=== PATIENT | female | born 1970 | race Caucasian/White ===

== ENCOUNTER 2018-08-19 20:01 | Emergency (ER) | payer MEDICAID ==
[2018-08-19] MEDS ORDERED: KETOROLAC TROMETHAMINE INJ/PF 30 MG/1 ML SDV IV ONE (21:35)
--- NOTE | 2018-08-19 21:40 | ER Document Report ---
ED Medical Screen (RME) - General Chief Complaint: Fall Stated Complaint: FALL Time Seen by Provider: 08/19/18 21:35 Notes: 47-year-old female comes by EMS for chief complaint of fall with injury. She reports she had a mechanical fall in a restaurant parking lot just prior to arrival. She tripped, fell onto her right side causing injury to her right ankle, side of the knee, right rib area, right hand, right wrist, and right elbow with multiple abrasions. Her tetanus is reportedly up-to-date. She denies hitting her head, back pain, she denies alcohol, she is not on a blood thinner. TRAVEL OUTSIDE OF THE [place] IN LAST 30 DAYS: No Past Medical History - Social History Chew tobacco use (# tins/day): No Frequency of alcohol use: None Drug Abuse: None Renal/ Medical History: Denies: Hx Peritoneal Dialysis Physical Exam - Vital signs Vitals: Pulse Resp BP Pulse Ox 80 16 167/107 H 95 08/19/18 20:19 08/19/18 20:19 08/19/18 20:19 08/19/18 20:19 - HEENT Head: Normocephalic, Atraumatic - Respiratory Respiratory status: No respiratory distress. No: Labored, Tachypnea Chest status: Tender - Tender over the right lower ribs without bruising, deformity, ecchymosis. Breath sounds: Normal. No: Decreased air movement - Abdominal Inspection: Normal Tenderness: Nontender Course - Re-evaluation Re-evalutation: No sign of head injury or altered mental status. Patient requesting something nonsedating for pain, EMS gave her an IV, will provide with Toradol through the IV. I have greeted and performed a rapid initial assessment of this patient. A comprehensive ED assessment and evaluation of the patient, analysis of test results and completion of the medical decision making process will be conducted by additional ED providers. - Vital Signs Vital signs: Temp Pulse Resp BP Pulse Ox 80 16 167/107 H 95 08/19/18 20:19 08/19/18 20:19 08/19/18 20:19 08/19/18 20:19
--- NOTE | 2018-08-19 22:39 | RADIOLOGY REPORT (SQ) ---
PA CHEST 2 VIEWS OF RIGHT RIBS HISTORY: Rib pain. COMPARISON: None. FINDINGS/IMPRESSION: No displaced rib fractures are seen. The surrounding lungs are clear. No pneumothorax or pleural effusions are seen. IMPRESSION: No displaced right-sided rib fractures are seen. If there is high clinical concern or point tenderness, consider CT scan.
--- NOTE | 2018-08-19 22:42 | RADIOLOGY REPORT (SQ) ---
3 VIEWS OF RIGHT ELBOW, HAND, AND WRIST HISTORY: Trauma. COMPARISON: None. FINDINGS: No acute fracture is seen. The joint spaces are preserved. No elbow joint effusion is seen. The surrounding soft tissues are swollen. No radiopaque foreign body is identified. IMPRESSION: No acute fracture or malalignment.
--- NOTE | 2018-08-19 22:43 | RADIOLOGY REPORT (SQ) ---
4 VIEWS OF RIGHT KNEE 3 VIEWS OF RIGHT ANKLE HISTORY: Trauma. COMPARISON: None. FINDINGS: No acute fracture or dislocation is seen. No knee or ankle joint effusion. The surrounding soft tissues are swollen. No radiopaque foreign body is identified. IMPRESSION: No acute fracture or malalignment.
--- NOTE | 2018-08-20 02:42 | ER Document Report ---
ED General - General Chief Complaint: Fall Stated Complaint: FALL Time Seen by Provider: 08/19/18 21:35 Notes: Patient is a 47-year-old female without chronic medical problems, does not take any form of anticoagulation, presents after mechanical fall in a parking lot. Patient states that she tripped over a concrete barrier in the parking lot falling down onto her right hand, right upper extremity, twisting her right ankle and landing onto her right hip and right chest wall. Denies hitting her head or neck. Notes a throbbing, aching, constant, moderate to severe pain to all affected areas. Pain is worsened by movement to the affected areas. Nothing improves the pain. Denies history of similar injuries in the past. Has not seen her primary doctor regarding today's concerns. Reports tetanus is up-to-date. TRAVEL OUTSIDE OF THE [place] IN LAST 30 DAYS: No Past Medical History - General Information source: Patient - Social History Smoking Status: Never Smoker Chew tobacco use (# tins/day): No Frequency of alcohol use: None Drug Abuse: None Lives with: Family Family History: Reviewed & Not Pertinent Patient has suicidal ideation: No Patient has homicidal ideation: No Renal/ Medical History: Denies: Hx Peritoneal Dialysis Review of Systems - Review of Systems Notes: Constitutional: Negative for fever. Eyes: Negative for visual changes. ENT: Negative for facial injury Cardiovascular: Positive for chest injury. Respiratory: Negative for shortness of breath. Gastrointestinal: Negative for abdominal injury. Genitourinary: Negative for genital injury Musculoskeletal: Positive for right ankle, right hand, right elbow, right hip injury Skin: Positive for laceration/abrasions. Neurological: Negative for head injury. Physical Exam - Vital signs Vitals: Pulse Resp BP Pulse Ox 80 16 167/107 H 95 08/19/18 20:19 08/19/18 20:19 08/19/18 20:19 08/19/18 20:19 Interpretation: Hypertensive Notes: PHYSICAL EXAMINATION: GENERAL: Well-appearing, no acute distress. HEAD: Atraumatic, normocephalic. EYES: Pupils equal round and reactive to light, extraocular movements intact, sclera anicteric, conjunctiva are normal. ENT: nares patent, no oral pharyngeal trauma. No hemotympanum, no Goldman's sign, no raccoon eyes. NECK: No midline cervical spine tenderness. Patient able to move their head to 45 bilaterally without any discomfort. LUNGS: Breath sounds clear to auscultation bilaterally and equal. No wheezes rales or rhonchi. HEART: Regular rate and rhythm without murmurs. CHEST WALL: No ecchymosis over the chest wall. ABDOMEN: Soft, nontender, normoactive bowel sounds. No guarding, no rebound. No abdominal bruising EXTREMITIES: Normal range of motion in all joint spaces, no pitting or edema. No long bone deformities. BACK: No midline spinal tenderness, step-offs, or deformities. NEUROLOGICAL: Face symmetric. Tongue protrudes midline. Extraocular motions in tact. Pupils are 2 mm and equally reactive. Normal speech, normal gait. 5 out of 5 strength in both the distal and proximal upper and lower extremities bilaterally. Sensation is grossly intact throughout. Finger to nose testing normal. Pronator drift normal. PSYCH: Normal mood, normal affect. SKIN: Warm, Dry, normal turgor, scattered abrasions of the right upper extremity and right hand. Trace ecchymosis over the right hip. Course - Re-evaluation Re-evalutation: 08/20/18 02:42 Patient presents after mechanical fall landing onto the right side of her body. X-rays were done of all affected areas of pain including her right ankle, side of the knee, right rib area, right hand, right wrist, and right elbow with multiple abrasions. Patient did not hit her head or neck. She has full range of motion in all affected joint spaces. Ambulatory without difficulty. Multiple scattered abrasions although her tetanus is up-to-date. At this time will discharge with return precautions and follow-up recommendations. Verbal discharge instructions given a the bedside and opportunity for questions given. Medication warnings reviewed. Patient is in agreement with this plan and has verbalized understanding of return precautions and the need for primary care follow-up in the next 24-72 hours. - Vital Signs Vital signs: Temp Pulse Resp BP Pulse Ox 80 16 167/107 H 95 08/19/18 20:19 08/19/18 20:19 08/19/18 20:08/19/18 20:19 - Diagnostic Test Radiology reviewed: Image reviewed, Reports reviewed Radiology results interpreted by me: 08/20/18 02:44 Right wrist x-ray: No acute fracture dislocation Chest x-ray: No acute fractures or pulmonary contusions Right ankle x-ray: No acute fracture dislocation Right hip x-ray: No acute fracture dislocation Right hand x-ray: No acute fracture dislocation Right elbow x-ray: No acute fracture or dislocation Discharge - Discharge Clinical Impression: Multiple abrasions Fall Qualifiers: Encounter type: initial encounter Qualified Code(s): W19.XXXA - Unspecified fall, initial encounter Injury of right upper extremity Qualifiers: Encounter type: initial encounter Qualified Code(s): S49.91XA - Unspecified injury of right shoulder and upper arm, initial encounter Injury of right hip Qualifiers: Encounter type: initial encounter Qualified Code(s): S79.911A - Unspecified injury of right hip, initial encounter Right ankle injury Qualifiers: Encounter type: initial encounter Qualified Code(s): S99.911A - Unspecified injury of right ankle, initial encounter Condition: Good Disposition: HOME, SELF-CARE Additional Instructions: You have been seen in the Emergency Department (ED) today following a fall. Your workup today did not reveal any injuries that require you to stay in the hospital. You can expect, though, to be stiff and sore for the next several days. For your pain: Take ibuprofen 600 mg and acetaminophen 1000 mg every 6 hours together as needed for pain. You can apply a hot pack or electric heating pad to the sore areas. You can also use topical "Aspercreme with lidocaine" to sore areas as needed. Please follow up with your primary care doctor as soon as possible regarding today's ED visit and your recent accident. Call your doctor or return to the ED if you develop a sudden or severe headache, confusion, slurred speech, facial droop, weakness or numbness in any arm or leg, extreme fatigue, vomiting more than two times, severe abdominal pain, or other symptoms that concern you. Forms: Return to Work
[2018-08-20 03:35] VITALS: BP 153/91
== END 2018-08-20 03:03 | disposition home or self-care (01) ==
LOC: ER 20:01
DX: S99.911A Unspecified injury of right ankle, initial encounter (principal); S79.911A Unspecified injury of right hip, initial encounter; S49.91XA Unspecified injury of right shoulder and upper arm, initial encounter; W18.00XA Striking against unspecified object with subsequent fall, initial encounter; Y92.481 Parking lot as the place of occurrence of the external cause
CPT/HCPCS: 99283; 96374; 73610; 73080; 73130; 73564; 71101; 73110; J1885